=== PATIENT | female | born 1990 | race Caucasian/White ===

== ENCOUNTER 2023-02-05 17:10 | Emergency (ER) | payer MEDICAID ==
[2023-02-05 17:24] VITALS: BP 165/105; O2SAT 100
[2023-02-05] MEDS ORDERED: MORPHINE 10 MG/ML VIAL IM STA (17:37)
--- NOTE | 2023-02-05 17:44 | ED Physician Documentation ---
PD HPI LOWER EXT INJURY - Stated complaint Stated Complaint: RT KNEE PX - Chief complaint Chief Complaint: Trauma Ext - History obtained from History obtained from: Patient - History of Present Illness PD HPI LOW EXT INJURY LOCATION: Right, Knee Type of injury: Twist, Blunt / blow Where injury occurred: Home - Additional information Additional information: 32-year-old female presents with right knee injury. She states that her aunts dog jumped up on her and in the process the patient's knee went completely backwards and hyper extended. Since then she has had medial right knee pain. She states she could not sleep last night due to the pain. She is able to ambulate but with a limp.She has been taking Tylenol and icing the area without improvement. The patient states she has an allergy to NSAIDs and is not able to tolerate IM Toradol either, she also has allergy to tramadol but can tolerate other oral narcotics. 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: Other : Kidney stones HEENT: None Psych: None Musculoskeletal: None Derm: None - Past Surgical History Past Surgical History: Yes General: Cholecystectomy /BEHAVIORAL HEALTH COUNSELOR: Dilation and currettage, Tubal ligation, Hysterectomy - Present Medications Home Medications: Ambulatory Orders Medication Instructions Recorded Confirmed HYDROcod/ACETAM 5/325 [Dumont 5/325] 1 - 2 tablet PO Q6H PRN #10 tablet 02/05/23 - Allergies Allergies/Adverse Reactions: Allergies Allergy/AdvReac Type Severity Reaction Status Date / Time tramadol AdvReac Unknown Nausea Verified 02/05/23 17:18 NSAIDS (Non-Steroidal AdvReac Nausea Verified 02/05/23 17:18 Anti-Inflamma - Social History Does the pt smoke?: Yes Smoking Status: Current every day smoker Does the pt drink ETOH?: No Does the pt have substance abuse?: No - Immunizations Immunizations are current?: Yes - POLST Patient has POLST: No PD ED PE NORMAL - Vitals Vital signs reviewed: Yes - General General: Alert and oriented X 3, No acute distress, Well developed/nourished - HEENT HEENT: Atraumatic - Respiratory Respiratory: No respiratory distress, Clear bilaterally - Abdomen Abdomen: Normal bowel sounds, Soft - Derm Derm: Normal color, Warm and dry - Extremities Extremities: No deformity, Other (Right knee medial joint line tenderness, no effusion no erythema no contusion. Patient reports pain with flexion extension, no obvious laxity.) - Psych Psych: Normal mood, Normal affect Results - Vitals Vitals: Vital Signs - 24 hr 02/05/23 17:19 Temperature 36.2 C L Heart Rate 103 H Respiratory 18 Rate Blood Pressure 165/105 H O2 Saturation 100 Oxygen O2 Source Room air - Rads (name of study) No standard instances Relevant Findings:: Final report received PD Medical Decision Making - ED course Complexity details: reviewed results, considered differential, d/w patient ED course: 32-year-old female presented with right knee injury as described in HPI. She is well-appearing here on physical exam, and her right knee exam is fairly unremarkable. The patient likely sustained a sprain no I cannot rule out a meniscus or full ligamentous injury at this time. We did obtain x-ray which is pending at this time but anticipate will be normal. The patient reports allergy to NSAIDs and therefore I have given her 10 tablets of Dumont to use only as needed and recommended ice, light compression and rest. She can follow-up with her PCP if no improvement in the next 1 to 2 weeks. Departure - Departure Clinical Impression: Right knee sprain Qualifiers: Encounter type: initial encounter Involved ligament of knee: unspecified ligament Qualified Code(s): S83.91XA - Sprain of unspecified site of right knee, initial encounter Condition: Good Instructions: ED Meniscal Injury Knee Poss Prescriptions: HYDROcod/ACETAM 5/325 [Dumont 5/325] 1 - 2 tablet PO Q6H PRN #10 tablet PRN Reason: Pain Comments: You likely have a sprain of the knee though I cannot rule out a meniscal Injury at this time. Please use cool compress, light Charli wrap or other compression wrap and you can take Tylenol as needed. If you have pain that is not relieved by Tylenol, I have given you a short course of oral hydrocodone. It should be only used as needed. If you have pain beyond the next 1 to 2 weeks, follow-up with your primary doctor. I am prescribing a short course of narcotic pain medication for you. These are potentially dangerous and addictive medications that should be used carefully. These medications may constipate you. Take an nhsj-gix-jkdqimq stool softener (docusate) twice daily with plenty of water while taking these medications. If you go 24 hours without a bowel movement, take rwke-viw-gmyoukr miralax, per package instructions. Do not drink or drive while taking these medications. If you received narcotic or sedating medications while in the emergency department, do not drive for 24 hours. Store this medication in a safe, secure place and out of reach of children. It is a violation of federal law to give or sell this medication to another person or to use in a manner other than prescribed. The ED will not refill narcotic prescriptions, including prescriptions lost or stolen. To dispose of unwanted medications: 1. [facility] provides a drop box for medication in pill form only (no liquids) 8:00 am to 4:30 p.m. Sunday-Sunday in the lobby of the [facility] [place], [address] Empty pills into ziplock bag before disposal. Call [phone] for information. 2.[employer] is a free service available to all [facility] residents. Go to [email or web address] Note that many narcotic pain relievers also contain Tylenol/acetaminophen. Please ensure that your total dose of acetaminophen from all sources does not exceed 3 g (3000 mg) per day. Forms: PCP List
--- NOTE | 2023-02-05 18:38 | XRAY Report ---
PROCEDURE: Knee 3V RT INDICATIONS: pain after trauma TECHNIQUE: 3 views of the knee(s) were acquired. COMPARISON: None. FINDINGS: Bones: No fractures or dislocations. No suspicious bony lesions. Soft tissues: No knee joint effusion. No suspicious soft tissue calcifications or masses. IMPRESSION: No acute bony abnormality. If it would be helpful for clinical management decision making, please consider a dedicated, schedule d knee MRI for further evaluation (assuming that there is no contraindication). Reviewed by: Dakota Pedraza MD on 02/05/2023 5:36 PM [facility] Approved by: Dakota Pedraza MD on 02/05/2023 5:36 PM [facility] Station ID: [id number]
== END 2023-02-05 18:55 | disposition home or self-care (01) ==
LOC: ED 17:10
DX: S83.91XA Sprain of unspecified site of right knee, initial encounter (principal); X50.1XXA Overexertion from prolonged static or awkward postures, initial encounter; F17.200 Nicotine dependence, unspecified, uncomplicated
CPT/HCPCS: 96372; 99283

== ENCOUNTER 2023-04-01 21:23 | Outpatient (CLI) | payer MEDICAID | END 2023-04-01 23:59 | disposition EMS.NT | LOC: EMS 21:23 | DX: T15.80XA Foreign body in other and multiple parts of external eye, unspecified eye, initial encounter (principal); W44.F9XA Other object of natural or organic material, entering into or through a natural orifice, initial encounter ==

== ENCOUNTER 2023-04-01 23:09 | Emergency (ER) | payer MEDICAID ==
[2023-04-01 23:15] VITALS: BP 150/90; O2SAT 100
[2023-04-02] MEDS: PROPARACAINE 0.5% OPHTH DROPS 15 ML LEFTEYE STA (00:45)
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
[2023-04-02] MEDS: ACETAMINOPHEN 500 MG TABLET PO STA (01:02)
[2023-04-02] MEDS: NEOMYCIN/POLYMYX/DEXAMETH OPHTH DROPS 5 ML LEFTEYE STA (01:17)
== END 2023-04-02 01:15 | disposition home or self-care (01) ==
LOC: ED 23:09
DX: T15.12XA Foreign body in conjunctival sac, left eye, initial encounter (principal); W44.9XXA Unspecified foreign body entering into or through a natural orifice, initial encounter; Y93.89 Activity, other specified; Y92.810 Car as the place of occurrence of the external cause; F17.200 Nicotine dependence, unspecified, uncomplicated
CPT/HCPCS: 99282; 99283; A9270; J3490

== ENCOUNTER 2023-04-16 08:00 | Outpatient (CLI) | payer MEDICAID ==
--- NOTE | 2023-04-16 16:16 | XRAY Report ---
PROCEDURE: Hip w/Pelvis 2-3V RT INDICATIONS: PIRIFORMIS SYNDROME TECHNIQUE: 3 views of the hip were acquired. COMPARISON: None. FINDINGS: Bones: No displaced fracture or dislocation. Soft tissues: No suspicious calcifications. IMPRESSION: No acute osseous abnormality. If there is high concern for further derangement, consider MRI evaluati on. Reviewed by: Rachid Jordan MD on 04/16/2023 4:14 PM PDT Approved by: Rachid Jordan MD on 04/16/2023 4:14 PM PDT Station ID: [id number]
== END 2023-04-16 23:59 | disposition home or self-care (01) ==
LOC: DI.S 08:00
PROVIDERS: ATTEND Emergency Medicine
DX: G57.01 Lesion of sciatic nerve, right lower limb (principal)

== ENCOUNTER 2023-04-24 17:22 | Emergency (ER) | payer MEDICAID ==
[2023-04-24 17:37] VITALS: BP 140/90; O2SAT 100
--- NOTE | 2023-04-24 17:41 | ED Physician Documentation ---
History of Present Illness - Stated complaint Stated Complaint: R LEG PX - Chief complaint Chief Complaint: Ext Problem - History obtained from History obtained from: Patient - Additonal information Additional information: About a week and a half ago developed atraumatic but severe pain from the right sciatic notch radiating into the right hip. Hurts to lay on the right side. She notes numbness in the right leg. No saddle anesthesia, incontinence, or fevers. 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: Other : Kidney stones HEENT: None Psych: None Musculoskeletal: None Derm: None - Past Surgical History Past Surgical History: Yes General: Cholecystectomy /TORCH HEATER: Dilation and currettage, Tubal ligation, Hysterectomy - Present Medications Home Medications: Ambulatory Orders Medication Instructions Recorded Confirmed Oxycodone HCl/Acetaminophen 1 - 2 each PO Q6H PRN #10 tablet 02/24/23 [Percocet 5-325 mg Tablet] Oxycodone HCl/Acetaminophen 1 - 2 each PO Q6H PRN #14 tablet 04/24/23 [Percocet 5-325 mg Tablet] predniSONE [Deltasone] 20 mg PO [id number] #21 tab 04/24/23 - Allergies Allergies/Adverse Reactions: Allergies Allergy/AdvReac Type Severity Reaction Status Date / Time tramadol AdvReac Unknown Nausea Verified 04/24/23 17:25 NSAIDS (Non-Steroidal AdvReac Nausea Verified 04/24/23 17:25 Anti-Inflamma - Social History Does the pt smoke?: Yes Smoking Status: Current every day smoker Does the pt drink ETOH?: No Does the pt have substance abuse?: No - Immunizations Immunizations are current?: Yes - POLST Patient has POLST: No PD ED PE NORMAL - Vitals Vital signs reviewed: Yes - General General: Alert and oriented X 3, Other (She winces with motion but is nontoxic- appearing.) - Abdomen Abdomen: Non tender - Derm Derm: Normal color, Warm and dry - Extremities Extremities: Other (She has diffuse tenderness of the right hip but most marked in the right sciatic notch. She has diminished sensation throughout the right leg with decreased patellar reflex on the right compared to the left. 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 Had a hip x-ray in the clinic which was reviewed and negative. Medicated here with 2 mg of IM Dilaudid and 60 mg p.o. prednisone. Departure - Departure Disposition: Home, Self Care Clinical Impression: Sciatica Qualifiers: Laterality: right Qualified Code(s): M54.31 - Sciatica, right side Condition: Good Record reviewed to determine appropriate education?: Yes Instructions: ED Sciatica Prescriptions: predniSONE [Deltasone] 20 mg PO [id number] #21 tab Oxycodone HCl/Acetaminophen [Percocet 5-325 mg Tablet] 1 - 2 each PO Q6H PRN #14 tablet PRN Reason: pain Comments: You were seen today for right-sided sciatica. Painful condition due to a pinched nerve in the back. This is also an explanation for why her right leg would have gone numb. I sent prescriptions electronically to the [facility] in [place]. Call your doctor to arrange a follow-up appointment, make the next available appointment. In the interim, return anytime if worse or if new symptoms develop. I am prescribing a short course of narcotic pain medication for you. These are potentially dangerous and addictive medications that should be used carefully. These medications may constipate you. Take an moqo-ylp-jdgkndj stool softener (docusate) twice daily with plenty of water while taking these medications. If you go 24 hours without a bowel movement, take kyus-pkj-eidddlw miralax, per package instructions. Do not drink or drive while taking these medications. If you received narcotic or sedating medications while in the emergency department, do not drive for 24 hours. Store this medication in a safe, secure place and out of reach of children. It is a violation of federal law to give or sell this medication to another person or to use in a manner other than prescribed. The ED will not refill narcotic prescriptions, including prescriptions lost or stolen. To dispose of unwanted medications: 1. [facility] provides a drop box for medication in pill form only (no liquids) 8:00 am to 4:30 p.m. Sunday-Sunday in the lobby of the [facility] [place], [address] Empty pills into ziplock bag before disposal. Call [phone] for information. 2.[employer] is a free service available to all [facility] residents. Go to [email or web address] Note that many narcotic pain relievers also contain Tylenol/acetaminophen. Please ensure that your total dose of acetaminophen from all sources does not exceed 3 g (3000 mg) per day. Forms: PCP List
[2023-04-24] MEDS: predniSONE 20 MG TABLET PO STA (17:51)
[2023-04-24] MEDS: HYDROmorphone 1 MG/ML CARPUJECT IM STA (17:51)
== END 2023-04-24 18:11 | disposition home or self-care (01) ==
LOC: ED 17:22
DX: M54.31 Sciatica, right side (principal); J45.909 Unspecified asthma, uncomplicated; Z87.442 Personal history of urinary calculi; F17.200 Nicotine dependence, unspecified, uncomplicated
CPT/HCPCS: 96372; 99283; J1170; J7512

== ENCOUNTER 2023-04-29 11:28 | Outpatient (CLI) | payer MEDICAID ==
--- NOTE | 2023-04-29 13:03 | Ultrasound Report ---
PROCEDURE: Pelvic Limited INDICATIONS: INGUINAL PAIN TECHNIQUE: Real-time transabdominal scanning was performed of the pelvic organs, with image documentation. COMPARISON: None. FINDINGS: There is no inguinal hernia or other sonographic abnormality in the area palpated by the patient at t he right groin. IMPRESSION: No sonographic evidence for right inguinal hernia. Reviewed by: Sona Mckenzie MD on 04/29/2023 1:02 PM PDT Approved by: Sona Mckenzie MD on 04/29/2023 1:02 PM PDT Station ID: [id number]
== END 2023-04-29 11:29 | disposition home or self-care (01) ==
LOC: DI 11:28
PROVIDERS: ATTEND Nurse Practitioner
DX: R10.2 Pelvic and perineal pain (principal)

== ENCOUNTER 2023-04-29 17:56 | Outpatient (CLI) | payer MEDICAID | END 2023-04-29 23:59 | disposition critical access hospital (66) | LOC: EMS 17:56 | DX: M53.3 Sacrococcygeal disorders, not elsewhere classified (principal); M79.604 Pain in right leg; R20.0 Anesthesia of skin | CPT/HCPCS: A0425; A0427; A0999 ==

== ENCOUNTER 2023-04-29 18:31 | Emergency (ER) | payer MEDICAID ==
[2023-04-29] MEDS: methocarbamoL 500 MG TABLET PO STA (19:38)
[2023-04-29] MEDS: HYDROmorphone 1 MG/ML CARPUJECT IVP STA (19:39)
[2023-04-29] MEDS: DEXAMETHASONE 10 MG/ML VIAL IVP STA (19:41)
--- NOTE | 2023-04-29 20:31 | XRAY Report ---
PROCEDURE: Lumbar Spine 2-3V INDICATIONS: fall, back pain TECHNIQUE: 3 views of the lumbar spine were acquired. COMPARISON: None. FINDINGS: Bones: 5 fuh-jlh-rmhgozu vertebrae are present. There is normal bony alignment. No vertebral body compression fractures. No suspicious bony lesions. Soft tissues: Overlying bowel gas pattern is normal. No suspicious soft tissue calcifications. IMPRESSION: No displaced fracture or traumatic subluxation. Reviewed by: Delmer Izquierdo MD on 04/29/2023 8:30 PM PDT Approved by: Delmer Izquierdo MD on 04/29/2023 8:30 PM PDT Station ID: [id number]
[2023-04-29 20:47] VITALS: BP 132/77; O2SAT 100
--- NOTE | 2023-04-29 20:57 | ED Physician Documentation ---
PD HPI BACK PAIN - Stated complaint Stated Complaint: BACK PX - Chief complaint Chief Complaint: Back Pain - History obtained from History obtained from: Patient, EMS - History of Present Illness Timing - onset: How many weeks ago (3-4) Timing - duration: Weeks (3-4) Timing - details: Gradual onset Pain level max: 10 Pain level now: 8 Location: Lower, Right Quality: Pain, Spasm, Similar to prior episodes Associated symptoms: Numbness. No: Fever, Weakness, Incontinent of urine, Unable to urinate, Hematuria, Incontinent of stool Contributing factors: No: Lifting, Twisting, Anticoagulated, Cancer, IVDA - Additional information Additional information: 32-year-old female presents to the emergency department stating that she fell about 3 to 4 weeks ago and has had persistent sciatica since then. She has been seen in the walk-in clinic as well as here. States she does not currently have a primary care provider. States that she is out of the medications that she was previously prescribed. Pain is worse with movement, better with rest. No loss of bowel or bladder control. Pain radiates down the right leg. Has intermittent numbness down the right leg as well. Does not use IV drugs. No fevers. No chills. Review of Systems Constitutional: denies: Fever, Chills Respiratory: denies: Cough GI: denies: Nausea, Vomiting, Diarrhea : denies: Incontinent Skin: denies: Rash Musculoskeletal: denies: Neck pain Neurologic: denies: Focal weakness, Confused, Altered mental status, Headache PD PAST MEDICAL HISTORY - Past Medical History Past Medical History: Yes Cardiovascular: None Respiratory: Asthma Neuro: None Endocrine/Autoimmune: None GI: Cholelithiasis DISPUTE SPECIALIST: Other : Kidney stones HEENT: None Psych: None Musculoskeletal: Other Derm: None - Past Surgical History Past Surgical History: Yes General: Cholecystectomy /DISPUTE SPECIALIST: Dilation and currettage, Tubal ligation, Hysterectomy - Present Medications Home Medications: Ambulatory Orders Medication Instructions Recorded Confirmed predniSONE [Deltasone] 20 mg PO [id number] #21 tab 04/24/23 04/29/23 Oxycodone HCl/Acetaminophen 1 - 2 each PO Q6H PRN #20 tablet 04/29/23 [Percocet 5-325 mg Tablet] MDD 6 tabs methocarbamoL [Methocarbamol] 750 mg PO Q6H 04/29/23 04/29/23 methocarbamoL [Robaxin] 500 mg PO Q6H PRN #20 tablet 04/29/23 predniSONE [Deltasone] 10 mg PO [id number] #42 tab 04/29/23 - Allergies Allergies/Adverse Reactions: Allergies Allergy/AdvReac Type Severity Reaction Status Date / Time tramadol AdvReac Unknown Nausea Verified 04/29/23 18:33 gabapentin AdvReac Nausea Verified 04/29/23 18:54 NSAIDS (Non-Steroidal AdvReac Nausea Verified 04/29/23 18:33 Anti-Inflamma - Social History Does the pt smoke?: Yes Smoking Status: Current every day smoker Does the pt drink ETOH?: No Does the pt have substance abuse?: No - Immunizations Immunizations are current?: Yes - POLST Patient has POLST: No PD ED PE NORMAL - Vitals Vital signs reviewed: Yes - General General: Alert and oriented X 3, No acute distress - HEENT HEENT: PERRL, Moist mucous membranes - Neck Neck: Supple, no meningeal sign - Cardiac Cardiac: RRR, Strong equal pulses - Respiratory Respiratory: No respiratory distress, Clear bilaterally - Abdomen Abdomen: Soft, Non tender, Non distended - Back Back: No spinal TTP, Other (No midline tenderness to palpation or percussion. No step-off or deformity. Mild paraspinal spasm right lower lumbar. Tenderness over the right SI joint.) - Derm Derm: Warm and dry - Extremities Extremities: No edema - Neuro Neuro: Alert and oriented X 3, No motor deficit, No sensory deficit, Other (Normal bilateral lower extremity patellar and ankle jerk reflexes. Normal great toe extension bilaterally. no saddle anesthesia) - Psych Psych: Normal mood, Normal affect Results - Vitals Vitals: Vital Signs - 24 hr 04/29/23 04/29/23 04/29/23 18:33 18:55 20:36 Temperature 36.8 C Heart Rate 118 H 89 88 Respiratory 20 18 16 Rate Blood Pressure 163/77 H 163/77 H 132/77 H O2 Saturation 98 99 100 Oxygen O2 Source Room air - Rads (name of study) Lumbar spine x-ray Relevant Findings:: Final report received, See rad report PD Medical Decision Making - ED course Complexity details: reviewed results, re-evaluated patient, considered [facility], d/w patient ED course: 32-year-old female with what appears to be right-sided Sciatica. Given steroids, IV Dilaudid. Pain well-controlled. Will place on oral pain medication, muscle relaxants and steroids for home. No evidence of cauda equina, epidural abscess. Given that this did start with a fall and she had not had any imaging performed of her lumbar spine, x-rays were performed. These do not show any acute abnormalities. Patient counseled regarding signs and symptoms for which I believe and urgent re-evaluation would be necessary. Patient with good understanding of and agreement to plan and is comfortable going home at this time This document was made in part using voice recognition software. While efforts are made to proofread this document, sound alike and grammatical errors may occur. Departure - Departure Disposition: Home, Self Care Clinical Impression: Sciatica Qualifiers: Laterality: right Qualified Code(s): M54.31 - Sciatica, right side Condition: Good Instructions: ED Sciatica Follow-Up: your,doctor in 1 week [Other] Prescriptions: predniSONE [Deltasone] 10 mg PO [id number] #42 tab Oxycodone HCl/Acetaminophen [Percocet 5-325 mg Tablet] 1 - 2 each PO Q6H PRN #20 tablet MDD 6 tabs PRN Reason: pain methocarbamoL [Robaxin] 500 mg PO Q6H PRN #20 tablet PRN Reason: muscle spasm Comments: Please follow-up with your doctor for further care. Your x-ray does not show any acute abnormalities today. I have sent your prescriptions to [facility] in [place]. You can use the medications as needed for muscle relaxants, pain control and steroids to help with inflammation. I am prescribing a short course of narcotic pain medication for you. These are potentially dangerous and addictive medications that should be used carefully. These medications may constipate you. Take an [id number] stool softener (docusate) twice daily with plenty of water while taking these medications. If you go 24 hours without a bowel movement, take [id number] miralax, per package instructions. Do not drink or drive while taking these medications. If you received narcotic or sedating medications while in the emergency department, do not drive for 24 hours. Store this medication in a safe, secure place and out of reach of children. It is a violation of federal law to give or sell this medication to another person or to use in a manner other than prescribed. The ED will not refill narcotic prescriptions, including prescriptions lost or stolen. To dispose of unwanted medications: 1. [facility] at [address] in [place] has a medication drop box. They accept prescription medications (in pill form) Sunday through Sunday 9:00 a.m. to 5:00 p.m. 2. [facility] accepts prescription medications (in pill form only) for disposal year round. Call for more informa tion. 3. Contact the [facility] for the next [facility] sponsored prescription drug collection event. , [phone], or [phone]; Discharge Date/Time: 04/29/23 21:10
[2023-04-29] MEDS: oxyCODONE 5 MG TABLET PO STA (21:06)
== END 2023-04-29 21:10 | disposition home or self-care (01) ==
LOC: EDUNIT# → ED 18:31
DX: M54.31 Sciatica, right side (principal); J45.909 Unspecified asthma, uncomplicated; Z87.442 Personal history of urinary calculi; Z90.49 Acquired absence of other specified parts of digestive tract; Z79.899 Other long term (current) drug therapy; R10.2 Pelvic and perineal pain
CPT/HCPCS: 72100; 76857; 96374; 96375; 99283; 99284; A9270; J1170

== ENCOUNTER 2023-07-28 08:00 | Outpatient (CLI) | payer MEDICAID ==
[2023-07-28 23:05] LABS: BACTERIAL VAGINOSIS DNA POSITIVE (NEGATIVE); CANDIDA GLABRATA DNA NEGATIVE (NEGATIVE); CANDIDA GROUP DNA POSITIVE (NEGATIVE); CANDIDA KRUSEI DNA NEGATIVE (NEGATIVE); TRICHOMONAS VAGINALIS DNA NEGATIVE (NEGATIVE)
== END 2023-07-28 23:59 | disposition home or self-care (01) ==
LOC: LAB.WCP 08:00
PROVIDERS: ATTEND Physician Assistant
DX: R30.0 Dysuria (principal)
CPT/HCPCS: 81514; 87086

== ENCOUNTER 2023-08-31 10:20 | Emergency (ER) | payer MEDICAID ==
--- NOTE | 2023-08-31 11:01 | XRAY Report ---
PROCEDURE: Chest 2V INDICATIONS: COUGH TECHNIQUE: 2 views of the chest were acquired. COMPARISON: 01/29/2014. FINDINGS: Surgical changes and devices: None. Lungs and pleura: No pleural effusions or pneumothorax. Lungs are clear. Mediastinum: Mediastinal contours appear normal. Heart size is normal. Bones and chest wall: No suspicious bony lesions. Overlying soft tissues appear unremarkable. IMPRESSION: No acute cardiopulmonary process. Reviewed by: Yunier Toussaint MD on 08/31/2023 11:00 AM PDT Approved by: Yunier Toussaint MD on 08/31/2023 11:00 AM PDT Station ID: [id number]
[2023-08-31 11:28] LABS: B. PARAPERTUSSIS- RESP PCR PAN NOT DETECTED; B. PERTUSSIS- RESP PCR PANEL NOT DETECTED; C. PNEUMONIAE- RESP PCR PANEL NOT DETECTED; CORONAVIRUS 229E-RESP PCR NOT DETECTED; CORONAVIRUS HKU1-RESP PCR NOT DETECTED; CORONAVIRUS NL63-RESP PCR NOT DETECTED; CORONAVIRUS OC43-RESP PCR NOT DETECTED; HUMAN METAPNEUMOVIRUS NOT DETECTED; INFLUENZA A- RESP PCR PANEL NOT DETECTED; INFLUENZA B - RESP PCR PANEL NOT DETECTED; M. PNEUMONIAE- RESP PCR PANEL NOT DETECTED; PARAINFLUENZA VIRUS 1 NOT DETECTED; PARAINFLUENZA VIRUS 2 NOT DETECTED; PARAINFLUENZA VIRUS 3 NOT DETECTED; PARAINFLUENZA VIRUS 4 NOT DETECTED; RHINOVIRUS/ENTEROVIRUS DETECTED; RSV- RESP PCR PANEL NOT DETECTED; SARS-CoV-2 -RESP PCR PANEL NOT DETECTED
--- NOTE | 2023-08-31 12:04 | ED Physician Documentation ---
History of Present Illness - Stated complaint Stated Complaint: SOA/CHEST PAIN - Chief complaint Chief Complaint: Resp - History obtained from History obtained from: Patient - History of Present Illness Timing: Prior to arrival - Additonal information Additional information: Patient is a 33-year-old female presenting to the emergency department with shortness of breath that has been going on for 3 days now. Patient notes persistent dry cough as well. She notes today she developed left-sided chest pain with movement and with coughing. She notes she has recently been around her uncle who was diagnosed with pneumonia few days ago. She denies any fevers at home no sore throat persistent nasal congestion though. Patient is half pack a day smoker has a history of asthma but does not currently take any inhalers at this time. PD PAST MEDICAL HISTORY - Past Medical History Cardiovascular: None Respiratory: Asthma Neuro: None Endocrine/Autoimmune: None GI: Cholelithiasis PHD INTERN: Other : Kidney stones HEENT: None Psych: None Musculoskeletal: Other Derm: None - Past Surgical History Past Surgical History: Yes General: Cholecystectomy /PHD INTERN: Dilation and currettage, Tubal ligation, Hysterectomy - Present Medications Home Medications: Ambulatory Orders Medication Instructions Recorded Confirmed predniSONE [Deltasone] 20 mg PO [id number] #21 tab 04/24/23 04/29/23 Oxycodone HCl/Acetaminophen 1 - 2 each PO Q6H PRN #20 tablet 04/29/23 [Percocet 5-325 mg Tablet] MDD 6 tabs methocarbamoL [Methocarbamol] 750 mg PO Q6H 04/29/23 04/29/23 methocarbamoL [Robaxin] 500 mg PO Q6H PRN #20 tablet 04/29/23 predniSONE [Deltasone] 10 mg PO [id number] #42 tab 04/29/23 Albuterol Sulf [Ventolin Hfa 1 - 2 puffs INH Q4HR PRN #18 gm 08/31/23 Inhaler] Benzonatate [Tessalon] 100 mg PO TID PRN 10 Days #30 cap 08/31/23 - Allergies Allergies/Adverse Reactions: Allergies Allergy/AdvReac Type Severity Reaction Status Date / Time tramadol AdvReac Unknown Nausea Verified 08/31/23 10:25 gabapentin AdvReac Nausea Verified 08/31/23 10:25 NSAIDS (Non-Steroidal AdvReac Nausea Verified 07/26/24 10:25 Anti-Inflamma - Social History Does the pt smoke?: Yes Smoking Status: Current every day smoker Does the pt drink ETOH?: No Does the pt have substance abuse?: No - Immunizations Immunizations are current?: Yes - POLST Patient has POLST: No PD ED PE NORMAL - Vitals Vital signs reviewed: Yes - General General: Alert and oriented X 3 - HEENT HEENT: Atraumatic, PERRL - Neck Neck: Supple, no meningeal sign - Cardiac Cardiac: RRR, No murmur, No gallop, No rub - Respiratory Respiratory: No respiratory distress, Other (Diffuse expiratory wheeze noted in bilateral lungs on auscultation. No appreciable rhonchi or rails on auscultation.) - Abdomen Abdomen: Normal bowel sounds - Neuro Neuro: Alert and oriented X 3 Results - Vitals Vitals: Vital Signs - 24 hr 08/31/23 08/31/23 10:25 12:33 Temperature 36.4 C L Heart Rate 87 84 Respiratory 22 20 Rate Blood Pressure 147/105 H O2 Saturation 100 Oxygen O2 Source Room air - Labs Labs: Laboratory Tests 08/31/23 10:31 Nasal Adenovirus (PCR) NOT DETECTED Nasal B. parapertussis DNA (PCR) NOT DETECTED Nasal Coronavir 229E PCR NOT DETECTED Nasal Coronavir HKU1 PCR NOT DETECTED Nasal Coronavir NL63 PCR NOT DETECTED Nasal Coronavir OC43 PCR NOT DETECTED Nasal Enterovir/Rhinovir PCR DETECTED A Nasal Influenza B PCR NOT DETECTED Nasal Influenza A PCR NOT DETECTED Nasal Parainfluen 1 PCR NOT DETECTED Nasal Parainfluen 2 PCR NOT DETECTED Nasal Parainfluen 3 PCR NOT DETECTED Nasal Parainfluen 4 PCR NOT DETECTED Nasal RSV (PCR) NOT DETECTED Nasal B.pertussis DNA PCR NOT DETECTED Nasal C.pneumoniae (PCR) NOT DETECTED Jim Human Metapneumo PCR NOT DETECTED Nasal M.pneumoniae (PCR) NOT DETECTED Nasal SARS-CoV-2 (PCR) NOT DETECTED - Rads (name of study) No standard instances Relevant Findings:: EMP independent interpretation of test (No acute cardiopulmonary findings. ) PD Medical Decision Making - ED course Complexity details: reviewed old records, reviewed results ED course: Patient is a 33-year-old female presenting to the emergency department with shortness of breath cough congestion that has been going on for 3 days patient also reports left-sided chest pain that started today she notes it worsens with movement and coughing. She has recent contacts with pneumonia she took a negative COVID test at home. She has tried Robitussin for her symptoms without relief. Vitals on arrival are reassuring patient is afebrile nontachycardic saturating at 100% on room air. Diffuse expiratory wheeze noted on auscultation of the lungs bilaterally. Normal cardiac sounds on auscultation of the heart. Patient CXR is reassuring no signs of any acute cardiopulmonary process. Patient did test positive for rhonovirus. Patient was given breathing treatment here in the emergency department for shortness of breath symptoms and wheezing on auscultation of the lungs. Reevaluation patient shows improvement in shortness of breath and no appreciable wheezing rhonchi or rales decreased breath sounds on auscultation of the lungs. Reassured patient on reassuring workup. She feels slightly better she is given Tylenol and lidocaine patch for chest pain she feels slightly improved instructed patient to continue taking Tylenol at home for symptoms drink lots of fluids and quarantine symptoms should improve in the next few days albuterol inhaler sent home with patient and strict return precautions given in discharge instructions. Departure - Departure Disposition: 01 Home, Self Care Clinical Impression: Rhinovirus, Upper respiratory infection Condition: Good Instructions: ED Reactive Airway Disease, ED Viral Syndrome Ch Comments: Your workup here in the emergency department showed you have rhinovirus and started you on an inhaler to help with your shortness of breath as well as cough medication to help with your symptoms you should quarantine as well as take Tylenol every 8 hours at 1000 mg to help with your symptoms watch for any worsening cough shortness of breath chest pain dizziness or lightheadedness. Return to the emergency department with any of the symptoms. Forms: PCP List
[2023-08-31] MEDS: ACETAMINOPHEN 325 MG TABLET PO STA (12:23)
[2023-08-31] MEDS: LIDOCAINE PATCH 5% TOP STA (12:23)
[2023-08-31] MEDS: ACETAMINOPHEN 650 MG SUPP PR STA (12:26)
[2023-08-31] MEDS: IPRATROPIUM/ALBUTEROL 3 ML NEB INH STA (12:31)
[2023-08-31 13:37] VITALS: BP 139/86; O2SAT 95
== END 2023-08-31 13:26 | disposition home or self-care (01) ==
LOC: ED 10:20
DX: J06.9 Acute upper respiratory infection, unspecified (principal); B97.89 Other viral agents as the cause of diseases classified elsewhere; J45.909 Unspecified asthma, uncomplicated; Z87.442 Personal history of urinary calculi; F17.200 Nicotine dependence, unspecified, uncomplicated
CPT/HCPCS: 71046; 87633; 94640; 99284; A9270